=== PATIENT | male | born 1980 | race Two or more races ===

== ENCOUNTER 2023-06-19 21:38 | Inpatient (IN) | payer OTHER ==
[2023-06-19 22:11] VITALS: BMI 25.4
[2023-06-19] MEDS ORDERED: guaiFENesin 600 MG TABLET.ER (FP) PO PRN (22:42)
[2023-06-19] MEDS ORDERED: IBUPROFEN 600 MG TABLET (FP) PO PRN (22:42)
[2023-06-19] MEDS ORDERED: NALOXONE HCL (KLOXXADO) 8 MG SPRAY NS PRN (22:42)
[2023-06-19] MEDS ORDERED: DICYCLOMINE HCL 10 MG CAPSULE PO PRN (22:42)
[2023-06-19] MEDS ORDERED: NALOXONE HCL 0.4 MG/ML VIAL IM PRN (22:42)
[2023-06-19] MEDS ORDERED: BENZOCAINE/MENTHOL (CHLORASEPTIC ) LOZENGE MM PRN (22:42)
[2023-06-19] MEDS ORDERED: BENZONATATE 200 MG CAPSULE PO PRN (22:42)
[2023-06-19] MEDS ORDERED: POLYETHYLENE GLYCOL (HEALTHYLAX) 3350 17 GM PACKET PO PRN (22:42)
[2023-06-19] MEDS ORDERED: LOPERAMIDE HCL 2 MG CAPSULE PO PRN (22:42)
[2023-06-19] MEDS ORDERED: IBUPROFEN 400 MG TABLET (FP) PO PRN (22:42)
[2023-06-19] MEDS ORDERED: MAGNESIUM HYDROX 2400MG/30ML ORAL SUSPENSION 30 ML CUP PO PRN (22:42)
[2023-06-19] MEDS ORDERED: ONDANSETRON *ODT* 4 MG TABLET SL PRN (22:42)
[2023-06-19] MEDS ORDERED: LORazepam 1 MG TABLET PO PRN (23:03)
[2023-06-19] MEDS ORDERED: LORazepam 2 MG TABLET ONE (23:47)
[2023-06-19] MEDS: LORazepam 2 MG TABLET PO SCH (23:50)
[2023-06-20] MEDS: BISMUTH SUBSALICYLATE 524 MG/30 ML PO PRN ×2 (02:47→22:41)
[2023-06-20] MEDS: METHOCARBAMOL 500 MG TABLET PO PRN ×2 (03:03→10:23)
[2023-06-20] MEDS: LORazepam 2 MG TABLET PO SCH ×4 (06:00→22:39)
[2023-06-20] MEDS: PRENATAL VITAMINS W/ FOLIC ACID TABLET (FP) PO SCH (10:23)
[2023-06-20 11:05] LABS: HEMATOCRIT 27.9 % (35.4-49); HEMOGLOBIN 8.7 GM/dL (11.7-16.9); MCH 22.7 pg (25.7-33.7); MEAN CELL VOLUME 73.1 fl (80-96); MEAN PLT VOLUME 9.1 fl (7.5-11.1); PLATELET COUNT 90 10^3/uL (134-434); RBC 3.82 M/mm3 (4.00-5.60); RDW 25.8 % (11.9-15.9); WHITE BLOOD COUNT 2.3 K/mm3 (4.0-10.0)
[2023-06-20 11:08] LABS: POTASSIUM 3.5 mmol/L (3.5-5.1)
[2023-06-20 11:13] LABS: ALBUMIN 3.3 g/dl (3.4-5.0); BLOOD UREA NITROGEN 10.3 mg/dL (7-18); CALCIUM 9.4 mg/dL (8.5-10.1)
[2023-06-20 11:16] LABS: CREATININE 0.7 mg/dL (0.55-1.3)
[2023-06-20 11:17] LABS: BILIRUBIN,TOTAL 0.8 mg/dL (0.2-1); TOT PROT 7.1 g/dl (6.4-8.2)
[2023-06-20] MEDS: MAG HYDROX/AL HYDROX/SIMETH 30 ML UNIT-DOSE CUP PO PRN (15:14)
[2023-06-20] MEDS: ACETAMINOPHEN 325 MG TABLET (FP) PO PRN (15:15)
[2023-06-20] MEDS: cloNIDine HCL 0.1 MG TABLET PO PRN ×2 (15:17→22:39)
[2023-06-20] MEDS: MELATONIN 5 MG TABLETS PO SCH (22:39)
[2023-06-20] MEDS: THIAMINE HCL 100 MG TABLET (FP) PO SCH (22:39)
[2023-06-21] MEDS: LORazepam 1 MG TABLET PO SCH ×4 (05:42→22:27)
[2023-06-21] MEDS: PRENATAL VITAMINS W/ FOLIC ACID TABLET (FP) PO SCH (10:34)
[2023-06-21] MEDS: BISMUTH SUBSALICYLATE 524 MG/30 ML PO PRN (17:14)
[2023-06-21] MEDS: THIAMINE HCL 100 MG TABLET (FP) PO SCH (22:25)
[2023-06-21] MEDS: MELATONIN 5 MG TABLETS PO SCH (22:25)
[2023-06-22] MEDS ORDERED: LORazepam 0.5 MG TABLET PO PRN
[2023-06-22] MEDS: LORazepam 0.5 MG TABLET PO SCH ×4 (05:47→22:18)
[2023-06-22] MEDS: METHOCARBAMOL 500 MG TABLET PO PRN (10:22)
[2023-06-22] MEDS: PRENATAL VITAMINS W/ FOLIC ACID TABLET (FP) PO SCH (10:22)
[2023-06-22] MEDS: MAG HYDROX/AL HYDROX/SIMETH 30 ML UNIT-DOSE CUP PO PRN ×2 (10:25→21:41)
[2023-06-22] MEDS: ACETAMINOPHEN 325 MG TABLET (FP) PO PRN (16:50)
[2023-06-22] MEDS: MELATONIN 5 MG TABLETS PO SCH (22:16)
[2023-06-22] MEDS: THIAMINE HCL 100 MG TABLET (FP) PO SCH (22:16)
[2023-06-23] MEDS ORDERED: LORazepam 0.5 MG TABLET PO ONE (05:00)
[2023-06-23] MEDS: PRENATAL VITAMINS W/ FOLIC ACID TABLET (FP) PO SCH (10:15)
[2023-06-23 11:27] LABS: HEMATOCRIT 30.7 % (35.4-49); HEMOGLOBIN 9.4 GM/dL (11.7-16.9); MCH 22.4 pg (25.7-33.7); MCHC 30.6 g/dl (32.0-35.9); MEAN CELL VOLUME 73.1 fl (80-96); MEAN PLT VOLUME 8.7 fl (7.5-11.1); RDW 25.1 % (11.9-15.9); WHITE BLOOD COUNT 3.4 K/mm3 (4.0-10.0)
[2023-06-23 11:30] LABS: PLATELET COUNT 86 10^3/uL (134-434)
[2023-06-23 11:39] LABS: IRON SERUM 31 ug/dL (50-175); TOTAL IRON BINDING CAPACITY 423 ug/dL (250-450)
[2023-06-23] MEDS: MAG HYDROX/AL HYDROX/SIMETH 30 ML UNIT-DOSE CUP PO PRN ×2 (14:01→22:22)
[2023-06-23] MEDS: FERROUS SO4 325 MG TABLET (FP) PO SCH (18:08)
[2023-06-23] MEDS: THIAMINE HCL 100 MG TABLET (FP) PO SCH (22:21)
[2023-06-23] MEDS: MELATONIN 5 MG TABLETS PO SCH (22:21)
[2023-06-24] MEDS: ACETAMINOPHEN 325 MG TABLET (FP) PO PRN (05:47)
[2023-06-24] MEDS ORDERED: LORazepam 0.5 MG TABLET PO ONE (06:00)
[2023-06-24] MEDS: FERROUS SO4 325 MG TABLET (FP) PO SCH ×2 (08:25→11:02)
[2023-06-24 09:26] VITALS: BP 149/84; PULSE 74; RESP 18; TEMP 98
[2023-06-24] MEDS: PRENATAL VITAMINS W/ FOLIC ACID TABLET (FP) PO SCH (10:06)
== END 2023-06-24 12:46 | disposition home or self-care (01) | DRG 775 ==
LOC: YASAS 21:38 → Y6N 06-20 02:19
PROVIDERS: ADMIT Allergy & Immunology; ATTEND Surgery
PROC: HZ2ZZZZ Detoxification Services for Substance Abuse Treatment (ICD-10-PCS; principal; 2023-06-20)
DX: F10.230 Alcohol dependence with withdrawal, uncomplicated (principal); D50.9 Iron deficiency anemia, unspecified; K70.30 Alcoholic cirrhosis of liver without ascites; E78.5 Hyperlipidemia, unspecified; E11.9 Type 2 diabetes mellitus without complications; R00.0 Tachycardia, unspecified; D61.818 Other pancytopenia
CPT/HCPCS: 36415; 80053; 82607; 82962; 83036; 83540; 83550; 85027; 86780; 87635; 87811; 93005; 93010; Q0162

== ENCOUNTER 2023-08-01 19:02 | Inpatient (IN) | payer OTHER ==
[2023-08-01 23:04] VITALS: BMI 26.2
[2023-08-02] MEDS ORDERED: MAGNESIUM HYDROX 2400MG/30ML ORAL SUSPENSION 30 ML CUP PO PRN (00:05)
[2023-08-02] MEDS ORDERED: BENZOCAINE/MENTHOL (CHLORASEPTIC ) LOZENGE MM PRN (00:05)
[2023-08-02] MEDS ORDERED: IBUPROFEN 600 MG TABLET (FP) PO PRN (00:05)
[2023-08-02] MEDS ORDERED: BENZONATATE 200 MG CAPSULE PO PRN (00:05)
[2023-08-02] MEDS ORDERED: chlordiazePOXIDE HCL 25 MG CAPSULE PO ONE (00:05)
[2023-08-02] MEDS ORDERED: guaiFENesin 600 MG TABLET.ER (FP) PO PRN (00:05)
[2023-08-02] MEDS ORDERED: LOPERAMIDE HCL 2 MG CAPSULE PO PRN (00:05)
[2023-08-02] MEDS ORDERED: P-EPHED 60MG/TRIPROLIDI 2.5MG TABLET PO PRN (00:05)
[2023-08-02] MEDS ORDERED: DICYCLOMINE HCL 10 MG CAPSULE PO PRN (00:05)
[2023-08-02] MEDS ORDERED: IBUPROFEN 400 MG TABLET (FP) PO PRN (00:05)
[2023-08-02] MEDS ORDERED: POLYETHYLENE GLYCOL (HEALTHYLAX) 3350 17 GM PACKET PO PRN (00:05)
[2023-08-02] MEDS ORDERED: ACETAMINOPHEN 325 MG TABLET (FP) PO PRN (00:05)
[2023-08-02] MEDS ORDERED: ONDANSETRON *ODT* 4 MG TABLET SL PRN (00:05)
[2023-08-02] MEDS: chlordiazePOXIDE HCL 25 MG CAPSULE PO PRN ×2 (02:41→13:33)
[2023-08-02] MEDS: chlordiazePOXIDE HCL 25 MG CAPSULE PO SCH ×4 (05:54→22:23)
[2023-08-02] MEDS: PRENATAL VITAMINS W/ FOLIC ACID TABLET (FP) PO SCH (10:06)
[2023-08-02] MEDS: MELATONIN 5 MG TABLETS PO SCH (22:23)
[2023-08-02] MEDS: THIAMINE HCL 100 MG TABLET (FP) PO SCH (22:23)
[2023-08-03] MEDS: chlordiazePOXIDE HCL 25 MG CAPSULE PO SCH ×4 (05:56→22:20)
[2023-08-03] MEDS: PRENATAL VITAMINS W/ FOLIC ACID TABLET (FP) PO SCH (10:25)
[2023-08-03] MEDS: MAG HYDROX/AL HYDROX/SIMETH 30 ML UNIT-DOSE CUP PO PRN (10:27)
[2023-08-03 11:56] LABS: HEMATOCRIT 28.4 % (35.4-49); HEMOGLOBIN 9.3 GM/dL (11.7-16.9); MCH 23.6 pg (25.7-33.7); MCHC 32.6 g/dl (32.0-35.9); MEAN CELL VOLUME 72.3 fl (80-96); PLATELET COUNT 131 10^3/uL (134-434); RBC 3.93 M/mm3 (4.00-5.60); RDW 24.8 % (11.9-15.9); WHITE BLOOD COUNT 2.5 K/mm3 (4.0-10.0)
[2023-08-03 11:58] LABS: POTASSIUM 5.4 mmol/L (3.5-5.1)
[2023-08-03 12:12] LABS: ALBUMIN 3.2 g/dl (3.4-5.0); BLOOD UREA NITROGEN 9.9 mg/dL (7-18); CALCIUM 8.1 mg/dL (8.5-10.1)
[2023-08-03 12:15] LABS: CREATININE 0.7 mg/dL (0.55-1.3)
[2023-08-03 12:17] LABS: BILIRUBIN,TOTAL 0.9 mg/dL (0.2-1); TOT PROT 7.1 g/dl (6.4-8.2)
[2023-08-03] MEDS ORDERED: SODIUM POLYSTYRENE SULFONATE 15 GM/60 ML BOTTLE PO ONE (14:45)
[2023-08-03] MEDS: BISMUTH SUBSALICYLATE 524 MG/30 ML PO PRN ×2 (18:35→22:21)
[2023-08-03] MEDS: MELATONIN 5 MG TABLETS PO SCH (22:19)
[2023-08-03] MEDS: THIAMINE HCL 100 MG TABLET (FP) PO SCH (22:20)
[2023-08-04] MEDS ORDERED: chlordiazePOXIDE HCL 10 MG CAPSULE PO PRN
[2023-08-04] MEDS: chlordiazePOXIDE HCL 10 MG CAPSULE PO SCH ×4 (05:41→22:09)
[2023-08-04] MEDS: PRENATAL VITAMINS W/ FOLIC ACID TABLET (FP) PO SCH (10:07)
[2023-08-04] MEDS: BISMUTH SUBSALICYLATE 524 MG/30 ML PO PRN (10:09)
[2023-08-04] MEDS ORDERED: POTASSIUM CHLORIDE ORAL LIQUID 20 MEQ/15 ML PO ONE (13:39)
[2023-08-04] MEDS: MELATONIN 5 MG TABLETS PO SCH (22:09)
[2023-08-04] MEDS: METHOCARBAMOL 500 MG TABLET PO PRN (22:09)
[2023-08-04] MEDS: THIAMINE HCL 100 MG TABLET (FP) PO SCH (22:09)
[2023-08-05] MEDS: chlordiazePOXIDE HCL 10 MG CAPSULE PO SCH ×2 (05:37→17:32)
[2023-08-05] MEDS: PRENATAL VITAMINS W/ FOLIC ACID TABLET (FP) PO SCH (09:40)
[2023-08-05] MEDS: POTASSIUM CHLORIDE ORAL LIQUID 20 MEQ/15 ML PO SCH ×2 (09:40→21:30)
[2023-08-05] MEDS: MAG HYDROX/AL HYDROX/SIMETH 30 ML UNIT-DOSE CUP PO PRN (14:39)
[2023-08-05] MEDS: MELATONIN 5 MG TABLETS PO SCH (21:30)
[2023-08-05] MEDS: THIAMINE HCL 100 MG TABLET (FP) PO SCH (21:30)
[2023-08-05] MEDS: METHOCARBAMOL 500 MG TABLET PO PRN (21:31)
[2023-08-06] MEDS ORDERED: chlordiazePOXIDE HCL 10 MG CAPSULE PO ONE (05:00)
[2023-08-06] MEDS: PRENATAL VITAMINS W/ FOLIC ACID TABLET (FP) PO SCH (09:46)
[2023-08-06] MEDS: MAG HYDROX/AL HYDROX/SIMETH 30 ML UNIT-DOSE CUP PO PRN (09:48)
[2023-08-06] MEDS: THIAMINE HCL 100 MG TABLET (FP) PO SCH (22:15)
[2023-08-06] MEDS: METHOCARBAMOL 500 MG TABLET PO PRN (22:15)
[2023-08-06] MEDS: MELATONIN 5 MG TABLETS PO SCH (22:15)
[2023-08-07] MEDS: MAG HYDROX/AL HYDROX/SIMETH 30 ML UNIT-DOSE CUP PO PRN ×2 (02:16→09:43)
[2023-08-07] MEDS: PRENATAL VITAMINS W/ FOLIC ACID TABLET (FP) PO SCH (09:20)
[2023-08-07 10:06] LABS: POTASSIUM 4.2 mmol/L (3.5-5.1)
[2023-08-07 10:16] LABS: CALCIUM 8.3 mg/dL (8.5-10.1)
[2023-08-07 10:17] LABS: BLOOD UREA NITROGEN 12.5 mg/dL (7-18)
[2023-08-07 10:19] LABS: CREATININE 0.8 mg/dL (0.55-1.3)
[2023-08-07 10:30] VITALS: BP 117/79; PULSE 97; RESP 18; TEMP 98.4
== END 2023-08-07 10:41 | disposition other institution (70) | DRG 775 ==
LOC: YASAS 19:02 → Y3N 08-02 02:03
PROVIDERS: ADMIT Allergy & Immunology; ATTEND Surgery
PROC: HZ2ZZZZ Detoxification Services for Substance Abuse Treatment (ICD-10-PCS; principal; 2023-08-02)
DX: F10.230 Alcohol dependence with withdrawal, uncomplicated (principal); D64.9 Anemia, unspecified; E87.5 Hyperkalemia; K74.60 Unspecified cirrhosis of liver; Z86.39 Personal history of other endocrine, nutritional and metabolic disease
CPT/HCPCS: 36415; 80048; 80053; 82607; 82746; 83540; 83550; 84132; 85027; 86780; 87635; Q0162